=== PATIENT | female | born 2000 | race Caucasian/White ===

== ENCOUNTER 2019-07-24 21:45 | Emergency (ER) | payer OTHER, SELFPAY ==
[2019-07-24 21:46] VITALS: BP 136/105; PULSE 108; RESP 14; TEMP 37.2; O2SAT 100; BMI 19.6
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
[2019-07-24] MEDS: Diphth,Pertuss(Acell),Tet Vac 0.5 ML Vial IM (22:54)
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
--- NOTE | 2019-07-25 00:55 | ED.DEP ---
ED Disposition - Plan for ED Patient: Instructions: LACERATION, Face (Suture or Tape) Referrals: Chet Hickey DO [Primary Care Provider] -
[2019-07-25] MEDS: Ibuprofen 600 MG Tablet PO (01:24)
[2019-07-25 01:26] VITALS: BP 136/86; PULSE 91; RESP 15
== END 2019-07-25 01:29 | disposition home or self-care (01) ==
PROVIDERS: Emergency Provider Emergency Medicine; PCP Family Medicine
DX: S01.82XA Laceration with foreign body of other part of head, initial encounter (principal); F32.9 Major depressive disorder, single episode, unspecified; V80.7 Animal-rider or occupant of animal-drawn vehicle injured in collision with other nonmotor vehicles; Z79.899 Other long term (current) drug therapy
CPT/HCPCS: 12014; 70450; 70486; 90715; 99284

== ENCOUNTER → 2022-08-14 | Outpatient (CLI) | payer OTHER, SELFPAY ==
[2022-08-14 15:35] LABS: Thyroid Stim Hormone (TSH) 0.77 uIU/mL (0.358-3.74)
[2022-08-14 15:45] LABS: Progesterone Level 5.55 ng/mL (See Comment)
== END | disposition home or self-care (01) ==
PROVIDERS: PCP Family Medicine; Referring Provider Nurse Practitioner Women's Health; Visit Provider Nurse Practitioner Women's Health
DX: N97.0 Female infertility associated with anovulation (principal)
CPT/HCPCS: 36415; 84144; 84443

== ENCOUNTER → 2022-10-09 | Outpatient (CLI) | payer SELFPAY ==
[2022-10-09 08:48] LABS: Progesterone Level 12.39 ng/mL (See Comment)
== END | disposition home or self-care (01) ==
PROVIDERS: PCP Family Medicine; Referring Provider Nurse Practitioner Women's Health; Visit Provider Nurse Practitioner Women's Health
DX: N97.0 Female infertility associated with anovulation (principal)
CPT/HCPCS: 36415; 84144